=== PATIENT | female | born 1935 ===

== ENCOUNTER 2019-12-28 15:44 | Inpatient (IN) | payer MEDICARE, OTHER ==
[~2019-12-28] VITALS: Ht 154.9 cm; Wt 74.5 kg
[2019-12-28] MEDS ORDERED: APIX2.5T PO (16:06)
[2019-12-28 17:10] LABS: *BILIRUBIN,URIN 1+ (NEGATIVE); *BLOOD, URINE 1+ (NEGATIVE); *CLARITY,URINE SLIGHTLY CLOUDY (CLEAR); *COLOR,URINE YELLOW (YELLOW); *KETONES,URINE NEGATIVE (NEGATIVE); *UROBILINOGEN,URINE 0.2 E.U./dl (NORMAL); LEUKOCYTE ESTERASE ,URINE NEGATIVE (NEGATIVE); NITRITE, URINE NEGATIVE (NEGATIVE); PH,URINE 5.5 (5.0-8.0); UGLUCOSE NEGATIVE (NEGATIVE)
[2019-12-28] MEDS ORDERED: PRED2.5T PO (17:20)
[2019-12-28] MEDS ORDERED: POTA10TA10 PO (17:20)
[2019-12-28] MEDS ORDERED: LOSA50TA39 PO (17:20)
[2019-12-28] MEDS ORDERED: TYLENOL #3 PO (17:20)
[2019-12-28] MEDS ORDERED: ROSU5TAB13 PO (17:20)
[2019-12-28] MEDS ORDERED: ONDA4TAB5 SL (17:20)
[2019-12-28] MEDS ORDERED: LIDO30AD10 TD (17:20)
[2019-12-28] MEDS ORDERED: FURO-152 PO (17:20)
[2019-12-28] MEDS ORDERED: OXYC-133 PO (17:20)
[2019-12-28] MEDS ORDERED: IV NORMAL SALINE 500 ML BAG IV ONE (17:30)
[2019-12-28 18:31] LABS: BASOPHILS % (AUTO) 0.5 % (0.0-2.0); EOSINOPHILS % (AUTO) 0.4 % (0.0-7.0); HEMATOCRIT 37.2 % (31.2-41.9); HEMOGLOBIN 11.9 g/dL (10.9-14.3); LYMPHOCYTES # (AUTO) 1.1 K/uL (20.0-40.0); LYMPHOCYTES % (AUTO) 14.2 % (20.5-51.5); MEAN CORPUSCULAR HEMOGLOBIN 26.8 uug (24.7-32.8); MEAN CORPUSCULAR HGB CONC 32 g/dL (32.3-35.6); MEAN CORPUSCULAR VOLUME 83.9 fL (75.5-95.3); MONOCYTES # (AUTO) 0.5 K/uL (2.0-10.0); MONOCYTES % (AUTO) 6.1 % (0.0-11.0); NEUTROPHILS # (AUTO) 6.1 K/uL (1.8-8.9); NEUTROPHILS % (AUTO) 78.8 % (38.5-71.5); PLATELET COUNT (AUTO) 267 K/uL (179-408); RED BLOOD CELL COUNT(AUTO) 4.43 MIL/uL (3.63-4.92); WHITE BLOOD COUNT (AUTO) 7.8 K/uL (3.8-11.8)
[2019-12-28 18:41] LABS: CARBON DIOXIDE 30 mmol/L (21-32); CHLORIDE 101 mmol/L (98-107); CREATININE 1.9 mg/dL (0.6-1.3); GLUCOSE 84 mg/dL (74-106); POTASSIUM 3.7 mmol/L (3.5-5.1); UREA NITROGEN, BLOOD 32 mg/dL (7-18)
[2019-12-28 18:46] LABS: ALANINE AMINOTRANSFERASE 16 U/L (14-59); ALKALINE PHOSPHATASE 48 U/L (50-136); ASPARTATE AMINOTRANSFERASE 10 U/L (15-37); BILIRUBIN,DIRECT 0.1 mg/dL (0.0-0.2); BILIRUBIN,TOTAL 0.7 mg/dL (0.2-1.0); TOTAL PROTEIN, SERUM 6.2 g/dL (6.4-8.2)
[2019-12-28 18:47] LABS: LIPASE 82 U/L (73-393)
--- NOTE | 2019-12-28 19:25 | NUR ---
Paged Dr Joaquin as requested by Dr Garland
--- NOTE | 2019-12-28 19:33 | NUR ---
Dr. Garland on panel call with Dr. Fowler
--- NOTE | 2019-12-28 20:43 | NUR ---
Report given to LEW Zaman
[2019-12-28] MEDS ORDERED: LIDOCAINE 5% PATCH TD PRN (21:15)
[2019-12-28] MEDS ORDERED: ACETAMINOPHEN 325 MG TABLET PO PRN (21:15)
[2019-12-28] MEDS ORDERED: MAGNESIUM HYDROXIDE 30 ML LIQUID UDC PO PRN (21:15)
[2019-12-28] MEDS ORDERED: Z GUARD REMEDY PASTE 57 GM TUBE TOP PRN (21:15)
[2019-12-28] MEDS ORDERED: ONDANSETRON 4 MG/2 ML VIAL IV PRN (21:15)
[2019-12-28 22:12] LABS: BACTERIA,URINE MANY /HPF (NONE SEEN); RBC,URINE 0-3 /HPF (0-3); SQUAMOUS EPITHELIAL CELL,UR FEW /HPF (NONE SEEN); WBC,URINE 0-3 /HPF (0-3)
[2019-12-28 22:13] LABS: URINE AMORPHOUS URATE MODERATE /HPF
[2019-12-28 23:15] VITALS: BP 145/92
--- NOTE | 2019-12-28 23:15 | NUR ---
Admitted a 84 years old female with Diagnosis of BRAYAN and edema. Patient AAOX4. [place]. In no acute distress. Complain of pain on right thigh area, will provide pain medication per order. Denies any SOB. IV site on left shoulder area intact and patent. Oriented to unit and states understanding. Davalos catheter intact and draining via gravity with clear yellow urine output on davalos bag present. Routine admission care done. Plan of care initiated. Safety measure initiated and call andersen within reached.
--- NOTE | 2019-12-28 23:15 | NUR ---
Pt. admitted to [facility], under care of Dr. Rdz Belongs List completed. All belongings with pt a/o no s/s of distress in stable condition
[2019-12-28] MEDS: HYDROCODONE/APAP 5-325MG TABLET PO PRN (23:59)
[2019-12-29 04:00] VITALS: BP 130/75
--- NOTE | 2019-12-29 06:23 | NUR ---
AAOX4. SYCUAN. In no acute distress. Denies any further pain. Denies any SOB. IV site on left shoulder remains intact and patent. Hayes catheter intact and draining via gravity. Denies any dysuria. Needs attended to and met. Safety measure maintained and call andersen within reached.
[2019-12-29] MEDS ORDERED: OXYCODONE/APAP 5-325 MG TABLET PO PRN (07:15)
[2019-12-29 07:25] LABS: BASOPHILS % (AUTO) 0.9 % (0.0-2.0); HEMATOCRIT 33.8 % (31.2-41.9); LYMPHOCYTES # (AUTO) 1.7 K/uL (20.0-40.0); LYMPHOCYTES % (AUTO) 34.8 % (20.5-51.5); MEAN CORPUSCULAR HEMOGLOBIN 27.2 uug (24.7-32.8); MEAN CORPUSCULAR HGB CONC 32 g/dL (32.3-35.6); MONOCYTES # (AUTO) 0.4 K/uL (2.0-10.0); NEUTROPHILS # (AUTO) 2.7 K/uL (1.8-8.9); NEUTROPHILS % (AUTO) 54.3 % (38.5-71.5); PLATELET COUNT (AUTO) 234 K/uL (179-408); RED BLOOD CELL COUNT(AUTO) 4.02 MIL/uL (3.63-4.92)
[2019-12-29 07:41] LABS: CARBON DIOXIDE 29 mmol/L (21-32); CHLORIDE 103 mmol/L (98-107); CHOLESTEROL 153 mg/dL (<200); CREATININE 1.9 mg/dL (0.6-1.3); GLUCOSE 85 mg/dL (74-106); HDL CHOLESTEROL 81 mg/dL (40-60); MAGNESIUM 2.3 mg/dL (1.8-2.4); PHOSPHOROUS 3.4 mg/dL (2.5-4.9); POTASSIUM 3.6 mmol/L (3.5-5.1); TRIGLYCERIDES 84 MG/DL (30-150); UREA NITROGEN, BLOOD 30 mg/dL (7-18)
[2019-12-29] MEDS: predniSONE 10 MG TABLET PO SCH (08:00)
[2019-12-29] MEDS: FUROSEMIDE 20 MG TABLET PO SCH (08:00)
[2019-12-29] MEDS: APIXABAN 5 MG TABLET PO SCH ×2 (08:00→20:01)
[2019-12-29 11:38] VITALS: BP 130/65
[2019-12-29] MEDS ORDERED: BISACODYL 10 MG SUPP.RECT RC PRN (14:45)
[2019-12-29] MEDS ORDERED: LACTULOSE 20 G/30 ML LIQUID UDC PO PRN (14:45)
[2019-12-29 15:35] VITALS: BP 138/74
[2019-12-29 20:00] VITALS: BP_SYST 142; BP_SYST 152; BP_DIAS 85; BP_DIAS 90
--- NOTE | 2019-12-29 20:31 | NUR ---
RECEIVED PT AWAKE, ALERT AND ORIENTEDX3. PT IN NO ACUTE DISTRESS. IV INTACT. WELLINGTON CATHETER INTACT AND DRAINING YELLOW COLORED URINE. PT COMPLAINING SHE'S CONSTIPATED. PT HARD OF HEARING. PT HAD SKIN ISSUES. SAFETY AND COMFORT PROVIDED. WILL CONTINUE TO MONITOR.
[2019-12-29] MEDS ORDERED: ATORVASTATIN 20 MG TABLET PO SCH (21:00)
[2019-12-30 04:00] VITALS: BP 139/75
[2019-12-30] MEDS: HYDROCODONE/APAP 5-325MG TABLET PO PRN (04:36)
--- NOTE | 2019-12-30 06:31 | NUR ---
PT SLEPT COMFORTABLY. PT IN NO ACUTE DISTRESS. IV INTACT. WELLINGTON INTACT. PRESCRIBED MEDICATION GIVEN AND PT TOLERATED IT WELL.. SAFETY AND COMFORT PROVIDED. WILL ENDORSE TO INCOMING NURSE FOR CONTINUITY OF CARE.
[2019-12-30 06:40] LABS: BASOPHILS # (AUTO) 0.1 K/uL (0.0-8.0); BASOPHILS % (AUTO) 1.1 % (0.0-2.0); EOSINOPHILS % (AUTO) 0.8 % (0.0-7.0); HEMATOCRIT 34.4 % (31.2-41.9); HEMOGLOBIN 11.4 g/dL (10.9-14.3); LYMPHOCYTES # (AUTO) 1.9 K/uL (20.0-40.0); LYMPHOCYTES % (AUTO) 29.1 % (20.5-51.5); MEAN CORPUSCULAR HEMOGLOBIN 27.7 uug (24.7-32.8); MEAN CORPUSCULAR HGB CONC 33 g/dL (32.3-35.6); MEAN CORPUSCULAR VOLUME 83.7 fL (75.5-95.3); MONOCYTES # (AUTO) 0.6 K/uL (2.0-10.0); MONOCYTES % (AUTO) 9.7 % (0.0-11.0); NEUTROPHILS # (AUTO) 3.8 K/uL (1.8-8.9); NEUTROPHILS % (AUTO) 59.3 % (38.5-71.5); PLATELET COUNT (AUTO) 264 K/uL (179-408); RED BLOOD CELL COUNT(AUTO) 4.11 MIL/uL (3.63-4.92); WHITE BLOOD COUNT (AUTO) 6.4 K/uL (3.8-11.8)
[2019-12-30 07:15] LABS: ALANINE AMINOTRANSFERASE 11 U/L (14-59); ALKALINE PHOSPHATASE 43 U/L (50-136); ASPARTATE AMINOTRANSFERASE 12 U/L (15-37); BILIRUBIN,TOTAL 0.3 mg/dL (0.2-1.0); CARBON DIOXIDE 32 mmol/L (21-32); CHLORIDE 101 mmol/L (98-107); CREATININE 1.9 mg/dL (0.6-1.3); GLUCOSE 91 mg/dL (74-106); MAGNESIUM 2.5 mg/dL (1.8-2.4); PHOSPHOROUS 2.7 mg/dL (2.5-4.9); POTASSIUM 3.9 mmol/L (3.5-5.1); UREA NITROGEN, BLOOD 26 mg/dL (7-18)
[2019-12-30 08:00] VITALS: BP 155/87
--- NOTE | 2019-12-30 08:00 | NUR ---
Received pt in bed awake AOx3, on RA with no SOB or distress noted at this time. Denied chest pain. Complained of abdominal cramps and pain, passing gas, pt was given laxatives during the PM shift. Hayes catheter in place draining clear yellow urine. Pitting edema noted on BLE and feet, pt able to move both legs. Bed locked in lowest position with siderails 2x up. Call light and ipad within reach. Dr. Oconnor already came in to see patient.
[2019-12-30] MEDS: FUROSEMIDE 20 MG TABLET PO SCH (08:56)
[2019-12-30] MEDS: predniSONE 10 MG TABLET PO SCH (08:56)
--- NOTE | 2019-12-30 09:00 | NUR ---
Pt complained of abdominal cramping and pain, was assisted to bathroom by physical therapists. Pt had a bowel movement, stool brown and formed. Pt's abdominal pain relieved.
[2019-12-30] MEDS: APIXABAN 5 MG TABLET PO SCH (09:02)
--- NOTE | 2019-12-30 10:38 | NUR ---
Removed davalos catheter, tolerated well. Output of 150mL of clear yellow urine
[2019-12-30 11:30] VITALS: BP 121/72
--- NOTE | 2019-12-30 12:11 | NUR ---
WOUND CARE CONSULT: PT PRESENTS AMBULATORY AND CONTINENT WITH SOME SKIN DISCOLORATIONS DRY SCAB TO RT ARM PRESENT ON ADMISSION. WILL SEE PRN.
--- NOTE | 2019-12-30 14:54 | NUR ---
Pt ambulated to bathroom and urinated clear, yellow urine with no issues
[2019-12-30 15:00] VITALS: BP 113/78
[2019-12-30] MEDS ORDERED: LACT10SO7 PO (17:27)
--- NOTE | 2019-12-30 18:24 | NUR ---
dc orders received noted and carried out,dc instruction and rn report given to the regional rehabilitation director nurse,dc pt to rehab via bed in stable condition with iv heplock per md orders,
[2019-12-30] MEDS ORDERED: MAGN400O6 PO (20:06)
== END 2019-12-30 18:25 | DRG 683 ==
LOC: ER 15:44 → TELE3 22:56 → MEDSURG3 23:29
PROVIDERS: ADMIT Internal Medicine; ATTEND Internal Medicine
DX: N17.0 Acute kidney failure with tubular necrosis (principal); I13.0 Hypertensive heart and chronic kidney disease with heart failure and stage 1 through stage 4 chronic kidney disease, or unspecified chronic kidney disease; Z86.711 Personal history of pulmonary embolism; Z79.01 Long term (current) use of anticoagulants; I50.9 Heart failure, unspecified; G89.29 Other chronic pain; E78.5 Hyperlipidemia, unspecified; N18.9 Chronic kidney disease, unspecified; Z85.42 Personal history of malignant neoplasm of other parts of uterus; Z86.73 Personal history of transient ischemic attack (TIA), and cerebral infarction without residual deficits; M19.90 Unspecified osteoarthritis, unspecified site; R53.1 Weakness; H91.90 Unspecified hearing loss, unspecified ear; M48.00 Spinal stenosis, site unspecified
CPT/HCPCS: 36415; 51702; 70030-TC; 71045; 83690; 83735; 84100; 85025; 85730; 87086; 93005; A4663; G0378; J7512

== ENCOUNTER 2019-12-30 15:23 | Inpatient (IN) | payer MEDICARE, OTHER ==
[~2019-12-30] VITALS: Ht 154.9 cm; Wt 74.4 kg
[~2019-12-30 15:23] MED LIST: APIX2.5T PO; FURO-152 PO; LIDO30AD10 TD; LOSA50TA39 PO; ONDA4TAB5 SL; OXYC-133 PO; POTA10TA10 PO; PRED2.5T PO; ROSU5TAB13 PO; TYLENOL #3 PO
[2019-12-30] MEDS ORDERED: LACT10SO7 PO (17:27)
[2019-12-30] MEDS ORDERED: HYDROCODONE/APAP 5-325MG TABLET PO PRN ×2 (19:00→22:15)
--- NOTE | 2019-12-30 19:00 | NUR ---
Admitted an 84 years old female patient from [place]. Patient is AAO x 4 and able to express self. No acute distress noted. No complain of pain at this time. Patient with IV access on Left shoulder gauge 22. Dr. Camarena informed regarding patient's admission to the unit. Safety measures in place, needs attended, call light left at bed side and will continue with care.
--- NOTE | 2019-12-30 19:29 | NUR ---
Endorsed to next shift regarding new admit and will continue with care.
--- NOTE | 2019-12-30 20:05 | NUR ---
Received a newly admitted patient in bed, AAO x4. No acute distress or SOB was noted. Able to make needs known. On room air. Complained of pain on her back. All needs attended promptly. Safety measures maintained. Fall prevention maintained. Bed in locked position, Side rails up x2 for safety. Continue to monitor.
[2019-12-30] MEDS ORDERED: MAGN400O6 PO (20:06)
[2019-12-30 20:35] VITALS: BP 165/88
--- NOTE | 2019-12-30 21:08 | NUR ---
Medications entered in the system. Contacted Dr. Oconnor for medication reconciliation. Waiting for his response.
--- NOTE | 2019-12-30 21:11 | NUR ---
Patient got agitated and aggressive. She asked for Voltaren topical gel. Explained to her that it is not available now and the pharmacy is closed; we will follow up for that tomorrow morning. Refused to listen and stated, "I will call my daughter to come and take me home". Tried to calm her down.
--- NOTE | 2019-12-30 21:15 | NUR ---
Patient still angry and uncooperative. Called her daughter and explained the situation and reassure her that we try our best to make the patient comfortable.
[2019-12-30] MEDS ORDERED: NIFEdipine XL 30 MG TABSR PO ONE (21:30)
--- NOTE | 2019-12-30 21:30 | NUR ---
Patient refused to have skin assessment, belonging list, and MRSA swab. Continue to monitor.
--- NOTE | 2019-12-30 21:45 | NUR ---
Patient had high BP, checked two times: 175/89, 165/88 HR:93, no other symptoms presented. There was not any BP PRN medication. Contacted on-call and received order of Procardia 30 mg PO Once from Dr. Rdz. Patient refused to take medication. Risks and benefits explained, still refused. Continue to monitor.
--- NOTE | 2019-12-30 21:50 | NUR ---
Patient complained of pain, did not rated. Took Narco 5-325 mg from the Pyxis. Patient refused to take it. Offered to use lidocaine patch, still refused. The benefit of controlling pain was explained. Still refused it, Narco was returned to the related container. Continue to monitor.
[2019-12-30] MEDS ORDERED: ONDANSETRON HCL 4 MG TABLET PO PRN (22:45)
[2019-12-30] MEDS ORDERED: LIDOCAINE 5% PATCH TD PRN (22:45)
[2019-12-30] MEDS ORDERED: LACTULOSE 20 G/30 ML LIQUID UDC PO PRN (22:45)
[2019-12-31 04:38] VITALS: BP 138/84
--- NOTE | 2019-12-31 05:37 | NUR ---
Removed the IV line on her left shoulder due to hurting the patient.
[2019-12-31 08:00] VITALS: BP 156/83
[2019-12-31] MEDS: POTASSIUM CHLORIDE 10 MEQ TAB.PRT.SR PO SCH (08:07)
[2019-12-31] MEDS: LOSARTAN POTASSIUM 50 MG TABLET PO SCH (08:07)
[2019-12-31] MEDS: FUROSEMIDE 20 MG TABLET PO SCH (08:07)
[2019-12-31] MEDS: APIXABAN 5 MG TABLET PO SCH ×2 (08:23→16:28)
[2019-12-31] MEDS: predniSONE 10 MG TABLET PO SCH (08:24)
[2019-12-31 15:08] VITALS: BP 95/58
--- NOTE | 2019-12-31 19:45 | NUR ---
Received patient in bed, alert oriented, but forgetful. Patient wanted to go home, explained to patient I will have to notify the MD if she wanted to go home. Patient slightly agitated, she getting dress, and her belonging at the bag. cont to monitor.
--- NOTE | 2019-12-31 20:10 | NUR ---
Received a call from Dr Maciel and ordered Voltaren gel topical four times a day, and patient can have the medication to self application. Notify MD that patient wanted to be discharge home, MD stated that he talk to patient daughter and daughter will not take her home at this time.
[2019-12-31] MEDS: MAGNESIUM HYDROXIDE 30 ML LIQUID UDC PO SCH ×2 (20:55→21:30)
[2019-12-31] MEDS ORDERED: ATORVASTATIN 10 MG TABLET PO SCH (21:00)
--- NOTE | 2019-12-31 22:40 | NUR ---
Patient getting agitated and wanted to go home. Patient was redirected to stay in her room at this time. Patient was tried to get out of facility, security was called. cont to monitor.
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
--- NOTE | 2019-12-31 23:29 | NUR ---
Patient daughter was called via phone to encourage mother to take Ativan 0.5mg po for anxiety. Patient daughter said that her mother will take any medication except for voltaren. Patient refused medications, refused ASSISTANT PROFESSOR [employer] to take her vital signs. Patient was notified that her daughter O'clifford said that she can't take her home tonight.
[2019-12-31] MEDS ORDERED: LORAZEPAM 0.5 MG TABLET PO PRN (23:30)
--- NOTE | 2020-01-01 06:12 | NUR ---
Patient refused ativan 0.5mg for anxiety, refused lab works, patient get agitated.
--- NOTE | 2020-01-01 06:51 | NUR ---
Patient stay up most of the night, continue to refused medication, lab works, refused to be weigh. Patient get agitated if insisted to take medication or lab draw. MD aware of behavior.
[2020-01-01] MEDS: predniSONE 10 MG TABLET PO SCH (09:00)
[2020-01-01] MEDS: POTASSIUM CHLORIDE 10 MEQ TAB.PRT.SR PO SCH (09:00)
[2020-01-01] MEDS: APIXABAN 5 MG TABLET PO SCH (09:00)
[2020-01-01] MEDS: FUROSEMIDE 20 MG TABLET PO SCH (09:00)
[2020-01-01] MEDS: LOSARTAN POTASSIUM 50 MG TABLET PO SCH (09:00)
--- NOTE | 2020-01-01 10:04 | NUR ---
Received patient in room, when trying to introduce self and do assessment patient was agitated verbalizing she does not want to be here, very upset and confused at times. Patient refused vital sign check and any other care. Patient also refused all due morning pills. Offered and explained the importance of med therapy patient still refused. Patient also refused to eat breakfast, offered and several times but patient still refused. Informed patient that we will call daughter and inform family that patient wants to be discharged. Will continue with care.
--- NOTE | 2020-01-01 10:12 | NUR ---
Spoke wit daughter Keyana Stein and informed her regarding patient's wishes to be discharged and that patient is refusing all care and medication therapy since the start of the shift and just wants to leave. Also informed daughter that MD is aware. Daughter stated she will call back to inform us what time she can pick patient up, because she is unable to come at this time. Will continue with care.
[2020-01-01] MEDS ORDERED: MAGNESIUM HYDROXIDE 30 ML LIQUID UDC PO PRN (11:04)
--- NOTE | 2020-01-01 11:30 | NUR ---
Patient still noted upset, refused PT/OT therapy. When trying to explaining discharge planning patient noted getting agitated.
--- NOTE | 2020-01-01 12:00 | NUR ---
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 Updated daughter on patient's condition and that patient still refused PT/OT therapy and just wants to be discharged. Daughter stated she understands and sated "You guys can't do anything from now on, I just have to deal with it".
--- NOTE | 2020-01-01 13:00 | NUR ---
Patient signed AMA form, explained to patient the risks of being discharged without the medical advice of a Dr. Patient read paper verbalized understanding and signed form. Belonging list checked and all belongings returned to patient. Patient assisted to car. Discussed care with daughter, daughter stated "This is how she acts if she doesn't have a control"It is not you guys, She has been like this her whole life, it has gotten worse as she got older" daughter stated she does not know what to do but will try to figure it out. Patient's own medication returned to daughter. Daughter thanked for all the care provided and left at 12:30pm.
== END 2020-01-01 12:30 | disposition left against medical advice (07) | DRG 684 ==
PROVIDERS: ADMIT Physical Medicine & Rehabilitation Pain Medicine; ATTEND Physical Medicine & Rehabilitation Pain Medicine
DX: N17.0 Acute kidney failure with tubular necrosis (principal); R53.1 Weakness; R53.81 Other malaise; R53.83 Other fatigue; E78.5 Hyperlipidemia, unspecified; I11.0 Hypertensive heart disease with heart failure; I50.9 Heart failure, unspecified; M19.90 Unspecified osteoarthritis, unspecified site; Z85.42 Personal history of malignant neoplasm of other parts of uterus; Z86.711 Personal history of pulmonary embolism; Z86.73 Personal history of transient ischemic attack (TIA), and cerebral infarction without residual deficits; Z79.01 Long term (current) use of anticoagulants; G89.29 Other chronic pain; M48.02 Spinal stenosis, cervical region; M51.36 Other intervertebral disc degeneration, lumbar region; Z88.3 Allergy status to other anti-infective agents; Z88.2 Allergy status to sulfonamides
CPT/HCPCS: J7512